=== PATIENT | male | born 1945 | race Caucasian/White ===

== ENCOUNTER 2016-10-30 11:40 | Inpatient (IN) | payer OTHER ==
[~2016-10-30] VITALS: Ht 167.6 cm; Wt 104.8 kg
[~2016-10-30 11:40] MED LIST: ALEVE220 M2 PO; ALPHAGAN P100 DROP/5; AMLODIPINE BESY10 MG; ASPIRIN81 M2 PO; CHILD ASPIRIN81 M1 PO; COMBIGAN O20 DROP/5 BOTH EYES; FLOMAX0.4 MG PO; LISINOPRIL40 MG; LISINOPRIL40 MG PO; METOCLOPRAM5 MG/1 M1 IV; NORVASC10 MG PO; PERCOCET 5/31 TABLET PO; SIMVASTATIN10 MG; TRAVATAN Z5 ML; TRAVATAN Z5 ML BOTH EYES; ZOCOR10 MG PO; ZOFRAN4 MG PO
[2016-10-30 13:24] LABS: CHLORIDE 106 mEq/L (99-109); POTASSIUM 4.3 mEq/L (3.7-5.4); SODIUM 138 mEq/L (136-147)
[2016-10-30 13:25] LABS: GLUCOSE 118 mg/dL (70-99)
[2016-10-30 13:27] LABS: ANION GAP 8 MEQ/L (2-14)
[2016-10-30 13:29] LABS: GFR ESTIMATE (CALCULATED) > 59 mL/min/
[2016-10-30 13:30] LABS: UREA NITROGEN (BUN) 15 mg/dL (9-23)
[2016-10-30 13:35] LABS: MCHC 34.4 G/DL (30.0-36.0); MCV 87.4 FL (86-99); MEAN PLAT.VOLUME 10.1 uM^3 (9.0-12.4); PLATELET COUNT 281 K/uL (156-360); RBC DIS.WIDTH-CV 13.3 % (11.8-14.6); RBC DIS.WIDTH-SD 41.7 % (39-53); RED BLOOD COUNT 4.46 M/uL (4.00-5.50); TROP-I INTERPRETATION NEGATIVE; WHITE BLOOD COUNT 6.9 K/uL (4.1-10.2)
[2016-10-30] MEDS ORDERED: LO-DOSE ASPIRIN81 M2 PO (15:10)
[2016-10-30 17:35] LABS: HDL CHOLESTEROL 51 MG/DL (Desirable>=40); LDL CHOLESTEROL 62 mg/dL (Desirable<100); NON-HDL CHOLESTEROL 83 mg/dL (Desirable<160); TOTAL CHOLESTEROL 134 mg/dL (Desirable<200); TRIGLYCERIDES 103 MG/DL (Normal: <150)
[2016-10-30 18:12] VITALS: BP 121/66
[2016-10-30 19:46] LABS: TROP-I INTERPRETATION POSITIVE
[2016-10-30 20:20] LABS: TROPONIN-I 2.37 ng/mL (0.0-0.30)
[2016-10-30 21:00] VITALS: BP 124/78
[2016-10-30 21:20] LABS: INTER. NORMALIZED RATIO 1.1; PROTHROMBIN TIME 10.7 (9.2-11.2); PTT 28.2 (25-32)
[2016-10-31] VITALS (7 sets, daily range): BP systolic 111–148; BP diastolic 55–81
[2016-10-31 00:59] LABS: TROP-I INTERPRETATION POSITIVE
[2016-10-31 01:02] LABS: TROPONIN-I 3.25 ng/mL (0.0-0.30)
[2016-10-31 07:51] LABS: TROP-I INTERPRETATION POSITIVE
[2016-10-31 07:53] LABS: CREATINE KINASE 108 IU/L (1-294); TOTAL CK 108 IU/L (1-294)
[2016-10-31 07:54] LABS: Estimated Average Glucose 134 mg/dL (70-123); HEMOGLOBIN A1c (GLYCOHEMOGLOB) 6.3 % HGB (Below 5.7)
[2016-10-31 07:55] LABS: TROPONIN-I 2.34 ng/mL (0.0-0.30)
[2016-10-31 10:45] LABS: CK-MB 6.4 ng/mL (0.0-4.9)
[2016-11-01 03:10] VITALS: BP 150/71
[2016-11-01 06:12] LABS: HEMATOCRIT 33.3 % (38.0-50.0); MCH 30.6 PG (29.0-34.0); MCHC 34.8 G/DL (30.0-36.0); MCV 87.9 FL (86-99); MEAN PLAT.VOLUME 9.8 uM^3 (9.0-12.4); PLATELET COUNT 204 K/uL (156-360); RBC DIS.WIDTH-CV 13.5 % (11.8-14.6); RBC DIS.WIDTH-SD 43.5 % (39-53); RED BLOOD COUNT 3.79 M/uL (4.00-5.50); WHITE BLOOD COUNT 7.2 K/uL (4.1-10.2)
[2016-11-01 08:00] VITALS: BP 163/77
[2016-11-01 12:36] VITALS: BP 158/76
== END 2016-11-01 12:56 | disposition short-term general hospital (02) | DRG 282 ==
LOC: EME 11:40 → EDOF 14:58 → 5WEST 17:52 → 4EAST 10-31 18:24
PROVIDERS: Internal Medicine
PROC: 4A023N7 Measurement of Cardiac Sampling and Pressure, Left Heart, Percutaneous Approach (ICD-10-PCS; principal; 2016-10-31)
PROC: B2111ZZ Fluoroscopy of Multiple Coronary Arteries using Low Osmolar Contrast (ICD-10-PCS; principal; 2016-10-31)
PROC: B2151ZZ Fluoroscopy of Left Heart using Low Osmolar Contrast (ICD-10-PCS; principal; 2016-10-31)
DX: I21.4 Non-ST elevation (NSTEMI) myocardial infarction (principal); R07.9 Chest pain, unspecified; I10 Essential (primary) hypertension; E78.5 Hyperlipidemia, unspecified; Z88.8 Allergy status to other drugs, medicaments and biological substances; I25.10 Atherosclerotic heart disease of native coronary artery without angina pectoris; E11.9 Type 2 diabetes mellitus without complications
CPT/HCPCS: 71020; 80048; 80061; 82550; 82553; 83036; 84443; 84484; 85027; 85610; 85730; 93005; 94799; 99281; 99285; C1769; C1887; G0378; J1644; J1650; J2250; J3010; J7040